=== PATIENT | male | born 1975 | race Caucasian/White ===

== ENCOUNTER 2022-12-25 15:35 | Emergency (ER) | payer OTHER, SELFPAY ==
--- NOTE | ~2022-12-25 | XR_ITS ---
EXAM: XR wrist RT min 3V DATE: 12/25/2022 16:13 HISTORY: medial rt wrist pain. . COMPARISON: None available. FINDINGS: Normal mineralization. No fracture or dislocation. No lytic or blastic lesion. Degenerativ e subchondral cysts present at the lunate/triquetral articulation. Mild ulnar positive variance No er osion or periosteal change. Soft tissues within normal limits. IMPRESSION: No acute osseous finding in the right wrist. Reviewed, dictated and finalized at location K.
--- NOTE | 2022-12-25 15:43 | ED.UPPEXIN ---
HPI - Extremity Injury (Upper) General Chief Complaint: Extremity Injury, Upper Stated Complaint: rt wrist injury Time Seen by Provider: 12/25/22 15:59 Source: patient, RN notes reviewed and old records reviewed Mode of arrival: ambulatory Limitations: no limitations History of Present Illness HPI narrative: 47-year-old male presents to the [facility] with complaints of right wrist pain with rotation. Denies any direct injury. States that he was making a sandwich at work on when he started having sharp pains in the ulnar aspect of the wrist. Has full range of motion. Treatments prior to arrival: NSAIDS (Advil) Related Data Home Medications Medication Instructions Recorded Confirmed Unable to Obtain Home Medications 12/25/22 12/25/22 Allergies Allergy/AdvReac Type Severity Reaction Status Date / Time No Known Drug Allergies Allergy Unknown Unknown Verified 12/25/22 16:15 Review of Systems Review of Systems: All systems reviewed & are unremarkable except as noted in HPI and below Constitutional: Constitutional: Reports no additional constitutional complaints Eyes: Eyes: Reports no additional eye complaints ENT: Reports system reviewed and no additional complaints, except as documented Cardiovascular: Cardiovascular: Reports no additional cardiovascular complaints, Denies chest pain and Denies dyspnea Respiratory: Respiratory: Reports no additional respiratory complaints, Denies chest congestion, Denies cough and Denies dyspnea Gastrointestinal: Gastrointestinal: Reports no additional gastrointestinal complaints, Denies abdominal pain, Denies nausea and Denies vomiting Musculoskeletal: Musculoskeletal: Reports as per HPI, Reports arthralgias (Right wrist), Denies joint swelling and Denies numbness Integumentary/Breasts: Skin/Breast: Reports system reviewed and no additional complaints, except as docu Neurologic: Reports system reviewed and no additional complaints, except as documented Psychiatric: Psychiatric: Reports no additional psychiatric complaints Allergic/Immunologic: Allergic/Immunologic: Reports no additional allergic/immunologic complaints PMFSH Comments At the time of my signature, I reviewed and agree with the nursing past medical, surgical, social, and family history. There is no relevant family history pertinent to the patient complaint. Exam Const: General: cooperative, healthy appearing, comfortable, no acute distress, well developed, alert and well nourished Nutritional Appearance: well nourished Orientation/consciousness: patient oriented x3 Limitations: no limitations HENMT: Head: normal to inspection Ears: hearing grossly normal bilaterally and external ears normal Face/Nose/Sinus: Normal external nose present, Normal nares present, Normal nasal mucous membranes and turbinates present, normal facial exam and face symmetric Face and sinus: normal facial exam and face symmetric Eyes: General: appearance normal, both eyes and all related structures Alignment and Position: alignment normal Periorbital: periorbital findings normal Pupils: Equal, round and reactive pupils present EOM: EOMs intact bilaterally Neck: Neck: normal visual inspection, full ROM, no lymphadenopathy and no meningeal signs Chest: Chest palpation & inspection: normal inspection of the chest Resp: Effort & Inspection: normal respiratory effort and able to speak in complete sentences Cardio: Rate: regular rate Rhythm: regular rhythm Back/Spine/Pelvis: Cervical Spine: cervical ROM normal Skin: General skin exam: normal color and no rashes or lesions noted Lesions: no lesions Rashes: no rashes Wounds: no wounds Neuro: General: patient oriented x3, gait normal, tone normal, moves all extremities and no meningeal signs Cranial nerves: Yes Equal, round and reactive pupils present Cognition (Neuro): normal cognition Speech: normal speech Gait exam (Neuro): Normal gait present Extrem: General: normal
[2022-12-25 15:55] VITALS: BP 145/96; PULSE 73; RESP 16; TEMP 36.2; O2SAT 97
== END 2022-12-25 16:25 | disposition home or self-care (01) ==
PROVIDERS: Emergency Provider Nurse Practitioner
DX: M25.531 Pain in right wrist (principal)
CPT/HCPCS: 73110; 99213; G0463

== ENCOUNTER 2023-05-08 09:40 | Emergency (ER) | payer OTHER, SELFPAY ==
[2023-05-08 09:44] VITALS: BP 125/102; PULSE 92; RESP 20; TEMP 36.8; O2SAT 99
[2023-05-08 09:52] VITALS: BP 125/102; PULSE 92; RESP 20; TEMP 36.8; O2SAT 99
--- NOTE | 2023-05-08 10:21 | ED.URI ---
HPI - URI/Sore Throat General Chief Complaint: Upper Respiratory Infection Stated Complaint: throat Time Seen by Provider: 05/08/23 10:10 Source: patient, RN notes reviewed and old records reviewed Mode of arrival: ambulatory Limitations: no limitations History of Present Illness HPI Narrative: 47 year old male presents to [facility] care accompanied by friend with complaints of sore throat for the past 2-3 days with cough and some episodes of diarrhea. Patient reports that he has no nausea or vomiting, states some headache discomfort and has felt feverish but hasn't monitored his temp. Patient reports that he has been taking Aleve for his symptoms. Patient denies any shortness of breath or any body aches. MD elicited complaint: cough and sore throat Onset (ago): day(s) (2-3 days) Pain scale (0-10): 8 Able to tolerate fluids by mouth: Yes Treatments prior to arrival: other (Aleve) Related Data Home Medications Medication Instructions Recorded Confirmed omeprazole 20 mg capsule,delayed 20 mg PO DAILY 05/08/23 05/08/23 release Allergies Allergy/AdvReac Type Severity Reaction Status Date / Time No Known Drug Allergies Allergy Unknown Unknown Verified 05/08/23 09:48 Review of Systems Review of Systems: CONSTITUTIONAL:states some malaise, chills, sweats, felt feverish EYES: Denies visual changes, redness, or discharge. ENT: Reports rhinorrhea, congestion, sinus pain,no otalgia and positive for sore throat. CARDIOVASCULAR: Denies chest pain, palpitations, or edema. RESPIRATORY: Reports cough.? Denies dyspnea. GASTROINTESTINAL: Denies abdominal pain, nausea, vomiting, intermittent diarrhea SKIN: Denies rash or itching. MUSCULOSKELETAL: Denies myalgia. NEUROLOGIC:Reports occasional headache. All systems reviewed & are unremarkable except as noted in HPI and below PMFSH Past Medical History Medical History (Updated 05/09/23 @ 09:07 by Danuta Robles NP) Depression GERD (gastroesophageal reflux disease) Surgical History Surgical History (Updated 05/09/23 @ 09:04 by Danuta Robles NP) H/O right knee surgery Social History Social History (Updated 05/09/23 @ 09:05 by Danuta Robles NP) Smoking status: Never smoker Alcohol intake: unknown Substance use type: does not use Gender identity (if verbalized by the patient): Male Comments At time of signature, agree with nursing past medical, surgical, social and family history. There is no relevant family history pertinent to the presenting complaint Exam Narrative: GENERAL: Well-appearing, well-nourished, and in no acute distress. HEAD: Normocephalic EYES: PERRLA, conjunctivae clear ENT: Nares clear, turbinates edematous and erythematous, clear discharge. Mucous membranes moist. TM pearly das with dull light reflex bilaterally; no tragal tenderness. Oropharynx erythematous without lesions. Tonsils not enlarged and without exudate, edentulous,no drooling, no hoarseness, no trismus, uvula midline. NECK: Supple. No lymphadenopathy CHEST: Clear to auscultation, breath sounds equal. No wheezing, rhonchi, rales, or stridor. No respiratory distress, speaks in full sentences.dry cough, SAO2 99% on room air HEART: Regular rate and rhythm. No murmur heard. SKIN: Warm, dry, no rash. NEURO: Alert and oriented x3. PSYCH: Normal mood and affect Course Course Emergency Course: Patient is aware of diagnosis, understands and agrees to treatment plan.? Anticipatory guidance given.? Patient agrees to follow-up as directed and is aware of reasons to seek care at the emergency department. Portions of this record may have been created with voice recognition software Level of Care: Express Care Visit Vital Signs Vital signs: Vital Signs Temperature 36.8 C 05/08/23 09:44 Pulse Rate 92 05/08/23 09:44 Respiratory Rate 20 05/08/23 09:44 Blood Pressure 125/102 H 05/08/23 09:44 Pulse Oximetry 99 05/08/23 0
[2023-05-08 10:34] VITALS: BP 130/96
== END 2023-05-08 10:34 | disposition home or self-care (01) ==
PROVIDERS: Emergency Provider Registered Nurse
DX: J06.9 Acute upper respiratory infection, unspecified (principal); J02.9 Acute pharyngitis, unspecified; K21.9 Gastro-esophageal reflux disease without esophagitis
CPT/HCPCS: 87081; 87880; 99213; G0463

== ENCOUNTER 2024-05-28 11:15 | Emergency (ER) | payer OTHER, SELFPAY ==
[2024-05-28 11:19] VITALS: BP 147/87; PULSE 94; RESP 16; TEMP 36.1; O2SAT 97
--- NOTE | 2024-05-28 11:56 | ED.URI ---
HPI - URI/Sore Throat General Chief Complaint: Upper Respiratory Infection Stated Complaint: Cough/Chest Pain/Hard to Breath Time Seen by Provider: 05/28/24 11:45 Source: patient, RN notes reviewed and old records reviewed Mode of arrival: ambulatory Limitations: no limitations History of Present Illness HPI Narrative: The 48-year-old male presents to [facility] Care with complaints of cough with chest hurting when he coughs and feeling like it is hard to breath starting last night. Patient reports that he has used cough medication and also used Flonase without improvement in his symptoms. Patient reports no known fevers states that he has had some chills and has felt hot.Patient reports that he has used Flonase and took some cough medication. MD elicited complaint: cough and other (some chills no fever noted) Pertinent past history: asthma (exercise induced asthma when younger) Onset (ago): day(s) (started yesterday evening) Pain scale (0-10): 5 Description of mucous: clear Able to tolerate fluids by mouth: Yes Treatments prior to arrival: other (cough medication and Flonase) Related Data Home Medications ?Medication ?Instructions ?Recorded ?Confirmed ?Last Taken ?Type omeprazole 20 mg capsule,delayed 20 mg PO DAILY 05/08/23 05/08/23 Unknown History release atorvastatin 10 mg tablet mg 05/28/24 Unknown History bupropion HCl 150 mg 24 hr tablet, mg PO 05/28/24 Unknown History extended release citalopram 20 mg tablet mg 05/28/24 Unknown History losartan 25 mg tablet mg 05/28/24 Unknown History Allergies Allergy/AdvReac Type Severity Reaction Status Date / Time No Known Drug Allergies Allergy Unknown Unknown Verified 05/28/24 11:25 Review of Systems Review of Systems: CONSTITUTIONAL: Reports malaise, chills, sweats, no known fever. EYES: Denies visual changes, redness, or discharge. ENT: Reports rhinorrhea, congestion, no sinus pain,no otalgia and no sore throat. CARDIOVASCULAR: Denies chest pain, palpitations, or edema.reports chest hurts with cough RESPIRATORY: Reports productive cough.? Denies dyspnea. GASTROINTESTINAL: Denies abdominal pain, nausea, vomiting, diarrhea SKIN: Denies rash or itching. MUSCULOSKELETAL: Denies myalgia. NEUROLOGIC: Denies headache. All systems reviewed & are unremarkable except as noted in HPI and below PMFSH Past Medical History Medical History (Updated 05/30/24 @ 10:51 by Danuta Robles NP) Hypertension Elevated cholesterol Asthma exercise induced when younger GERD (gastroesophageal reflux disease) Depression Surgical History Surgical History (Updated 05/09/23 @ 09:04 by Danuta Robles NP) H/O right knee surgery Social History Social History (Updated 05/09/23 @ 09:05 by Danuta Robles NP) Smoking status: Never smoker Alcohol intake: unknown Substance use type: does not use Gender identity (if verbalized by the patient): Male Comments At time of signature, agree with nursing past medical, surgical, social and family history. There is no relevant family history pertinent to the presenting complaint Exam Narrative: GENERAL: Well-appearing, well-nourished, and in no acute distress. HEAD: Normocephalic EYES: PERRLA, conjunctivae clear ENT: Nares clear, turbinates edematous and erythematous, clear discharge. Mucous membranes moist. TM pearly das with dull light reflex bilaterally; no tragal tenderness. Oropharynx erythematous without lesions. Tonsils not enlarged and without exudate, no drooling, no hoarseness, no trismus, uvula midline.post nasal drainage NECK: Supple. No lymphadenopathy CHEST: Clear to auscultation, breath sounds equal. No wheezing, rhonchi, rales, or stridor. No respiratory distress, speaks in full sentences.loose cough, SAO2 97% no tachypnea noted no retractions even and nonlabored HEART: Regular rate and rhythm. No murmur heard. SKIN: Warm, dry, no rash. NEURO: Alert and oriented x3. PSYCH: Normal mood and affect Course Course Emergency Course: Patient is aware of diagnosis, understands and agrees to treatment plan.? Anticipatory guidance given.? Patient agrees to follow-up as directed and is aware of reasons to seek care at the emergency department. Portions of this record may have been created with voice recognition software Level of Care: Express Care Visit Vital Signs Vital signs: Vital Signs Temperature 36.1 C L 05/28/24 11:19 Pulse Rate 94 05/28/24 11:19 Respiratory Rate 16 05/28/24 11:19 Blood Pressure 147/87 H 05/28/24 11:19 Pulse Oximetry 97 05/28/24 11:19 Oxygen Delivery Room Air 05/28/24 11:19 Temperature 36.1 C L 05/28/24 11:19 Pulse Rate 94 05/28/24 11:19 Respiratory Rate 16 05/28/24 11:19 Blood Pressure 147/87 H 05/28/24 11:19 Pulse Oximetry 97 05/28/24 11:19 Oxygen Delivery Room Air 05/28/24 11:19 Reviewed MDM - URI/Sore Throat MDM Narrative Medical decision making narrative: Differential diagnosis considered: Pete virus, strep pharyngitis, allergic rhinitis, upper respiratory tract infection, sinusitis, rhinosinusitis, nasopharyngitis. viral pharyngitis, otitis media, otitis externa, pneumonia, bronchitis, viral cough syndrome, viral syndrome, and influenza.? Exam findings show no acute concerns or changes; patient is non-toxic appearing and is in no distress.? Patient is appropriate for outpatient treatment and follow-up. Differential Diagnosis Differential diagnosis: Likely upper respiratory infection, sinusitis, viral infection, bronchitis, influenza and other (COVID, acute cough) Medical Records Attestation: I reviewed the patient's medical records. Lab Data Attestation: I reviewed the patient's lab results. Lab results narrative: Influenza A negative, Influenza B negative, COVID antigen negative Labs: Lab Results 05/28/24 Range/Units 11:59 POC Influenza A Ag Negative (Negative) POC Influenza B Ag Negative (Negative) POC SARS CoV-2 Ag Negative (Negative) reviewed Critical Care Time Critical Care Time Critical Care Time: No Discharge Plan Discharge Clinical Impression: Acute cough Upper respiratory infection Qualifiers: URI type: unspecified URI Qualified Code(s): J06.9 - Acute upper respiratory infection, unspecified Patient Disposition: Home, Self-Care Condition: Stable Instructions: Antibiotic Form, Upper Respiratory Infection (ED), Acute Cough (ED) Additional Instructions: Increase fluids especially juices and water Mfof-zxc-wyxohdy cough and cold medicine of your choice for your symptoms Zyrtec Claritin or Olivia daily include Coricidin brand decongestant Continue your inhaler/nebulizer as directed Steroids as directed--take with food heat to the face 20-30 minutes 4-6 times a day for pain Salt water gargles, throat lozenges or throat sprays as desired If your symptoms persist, change or worsen significantly before you can contact your personal physician then please, without delay, go to the emergency department for further evaluation. Follow-up with PCP in 7-10 days or sooner if needed Follow up with PCP soon in regards to your blood pressure which is elevated above threshold for referral. Blood pressure above 120/80 may indicate pre-hypertension. Patient Language: Polish Prescriptions: New prednisone 20 mg tablet 20 mg PO BID Qty: 10 0RF albuterol sulfate [Ventolin HFA] 90 mcg/actuation HFA aerosol inhaler 2 puff inhalation QID PRN (Reason: shortness of breath or wheezing) Qty: 6.7 0RF Rx Instructions: Whatever is covered with his insurance No Action omeprazole 20 mg capsule,delayed release(DR/EC) 20 mg PO DAILY atorvastatin 10 mg tablet citalopram 20 mg tablet losartan 25 mg tablet bupropion HCl 150 mg tablet extended release 24 hr PO Follow-up/Referrals: UNKNOWN,DOCTOR [Primary Care Provider] - Time of Disposition: 12:14 Quality April Coma Scale Eyes: Open Verbal: Oriented and Alert Motor: Follows Commands [place] Coma Total Score: 15
--- OUTSIDE RECORDS SUMMARY | 2024-05-28 12:02 | XMS_ITS | Referral Summary ---
Author Organization [facility] Address [address] [place] [address] Care Team Providers Care Financial Sales Professional Name Role Phone Atul De Jesus MD Primary Care Provider + Source Comments [facility],non-owned Affiliates and Associated Physician Practices is amultiple site organization consisting of ambulatory clinics and hospital sitesin [place], [place], [place] and [place]. This disclosure is being madepursuant to the Care Everywhere program and may not contain all informatio navailable regarding this patient. Last updated 18.[facility] Allergies No known active allergies Medications * Be aware that medications may not be up to date on this document. Alwaysverify current medications with the patient. Medication Sig Dispensed Refills Start Date End Date Status aspirin (ASPIRIN) 81 MG chew tablet Take 81 mg by mouth once daily Active atorvastatin (LIPITOR) 40 MG tablet Take 40 mg by mouth at bedtime Active venlafaxine XR 24hr (EFFEXOR XR) 37.5 MG capsule Take 37.5 mg by mouth daily with breakfast Active fish oil/omega-3 fatty acids (PROMEGA;CARDI-OMEGA 3) 1000 MG capsule Take 1,000 mg by mouth daily with food Active Cholecalciferol (VITAMIN D3) 400 UNITS tablet Take 5,000 Units by mouth once daily Active buPROPion XL 24hr (WELLBUTRIN-XL) 300 MG tablet TK 1 T PO QD 01/21/2016 Active cyclobenzaprine (FLEXERIL) 10 MG tablet TAKE ONE T PO THREE TIMES D PRN AND USE SPARINGLY AFTER PHYSICAL THERAPY 11/05/2015 Active Active Problems Problem Noted Date Diagnosed Date Cervical radiculopathy at C5 10/05/2017 Tendinopathy of right rotator cuff 10/05/2017 Resolved Problems Problem Noted Date Diagnosed Date Resolved Date Ischemic stroke 08/03/2017 10/05/2017 Social History Tobacco Use Types Packs/Day Years Used Date Smoking Tobacco: Never Smokeless Tobacco: Never Tobacco Cessation:Counseling Given: Yes Alcohol Use Standard Drinks/Week Comments No 0 (1 standard drink = 0.6 oz pur e alcohol) Sex and Gender Information Value Date Recorded Sex Assigned at Not on file Gender Identity Not on file Sexual Orientation Not on file Last Filed Vital Signs Vital Sign Reading Time Taken Comments Blood Pressure 132/81 10/05/2017 10:36 AM CDT Pulse 87 09/04/2017 11:33 AM CDT Temperature 36.7 C (98 F) 09/04/2017 11:33 AM CDT Respiratory Rate 18 08/04/2017 11:55 AM CDT Oxygen Saturation 95% 08/04/2017 11:55 AM CDT Inhaled Oxygen Concentration - - Weight 90.7 kg (200 lb) 10/23/2017 10:18 AM CDT Height 170.2 cm (5' 7 ) 10/23/2017 10:18 AM CDT Body Mass Index 31.32 10/23/2017 10:18 AM CDT Functional Status Functional Status Response Date of Assess ment Is person deaf or have serious hearing difficult y? No 08/04/2017 Is person blind or have serious difficulty seein g? No 08/04/2017 Does person have serious dif ficulty walking/climbing stairs? No 08/04/2017 Does person have difficulty dressing/bathing? No 08/04/2017 Does person have difficulty doing errands alone? No 08/04/2017 Cognitive Status Response Date of Assessm ent Does person have difficulty concentrating/remembering/making decisions? No 08/04/2017 Plan of Treatment Not on file Advance Directives * Full Code (Latest Code Status on File) Date Activated Date Inactivated Comments 08/04/2017 3:25 AM 08/04/2017 4:56 PM Care Teams Financial Sales Professional Relationship Specialty Start Date End Date tAul De Jesus MD PCP - General 08/06/17
--- OUTSIDE RECORDS SUMMARY | 2024-05-28 12:02 | XMS_ITS | Patient Health Summary ---
Author Organization [facility] Fleck Address [address] [place] [address] Care Team Providers Care Research Project Coordinator Name Role Phone Atul De Jesus MD Primary Care Provider + Note from [facility],non-owned Affiliates and Associated Physician Practices is amultiple site organization consisting of ambulatory clinics and hospital sitesin [place], [place], [place] and [place]. This disclosure is being madepursuant to the Care Everywhere program and may not contain all information available regarding this patient. Last updated 18.[facility] Allergies No known active allergies Medications * Be aware that medications may not be up to date on this document. Alwaysverify current medications with the patient. * aspirin (ASPIRIN) 81 MG chew tablet Take 81 mg by mouth once daily * atorvastatin (LIPITOR) 40 MG tablet Take 40 mg by mouth at bedtime * venlafaxine XR 24hr (EFFEXOR XR) 37.5 MG capsule Take 37.5 mg by mouth daily with breakfast * fish oil/omega-3 fatty acids (PROMEGA;CARDI-OMEGA 3) 1000 MG capsule Take 1,000 mg by mouth daily with food * Cholecalciferol (VITAMIN D3) 400 UNITS tablet Take 5,000 Units by mouth once daily * buPROPion XL 24hr (WELLBUTRIN-XL) 300 MG tablet(Started 01/21/2016) TK 1 T PO QD * cyclobenzaprine (FLEXERIL) 10 MG tablet(Started 11/05/2015) TAKE ONE T PO THREE TIMES D PRN AND USE SPARINGLY AFTER PHYSICAL THERAPY Active Problems Problem Noted Date Diagnosed Date [...] Mass Index 31.32 10/23/2017 10:18 AM CDT Procedures * SARS-COV-2 (COVID-19) IN HOUSE(Performed 01/20/2020) Performed for Exposure to SARS-associated coronavirus * SARS-COV-2 (COVID-19) PANEL (SOIL)(Performed 01/20/2020) Performed for Exposure to SARS-associated coronavirus * MRI CERVICAL SPINE WO CONTRAST(Performed 10/12/2017) Performed for Osteoarthritis of spine with radiculopathy, cervical region * FL DRAIN/INJECT LARGE JOINT/BURSA(Performed 10/05/2017) Performed for Tendinopathy of right rotator cuff * XR CERVICAL SPINE 2 OR 3VW(Performed 10/05/2017) Performed for Neck pain * XR SHOULDER RIGHT 2VW OR MORE(Performed 10/05/2017) Performed for Right shoulder pain, unspecified chronicity * MRI SHOULDER RIGHT WO CONTRAST(Performed 09/15/2017) Performed for Chronic right shoulder pain * URINE DRUG SCREEN IMMUNOASSAY(Performed 08/04/2017) * MRI BRAIN WO CONTRAST(Performed 01/09/2017) Results * SARS-COV-2 (COVID-19) IN HOUSE (01/20/2020 2:34 PM CDT) COVID-19 PCR Not detected Not detected 01/21/2020 10:36 PM CDT [facility] MICROBIOLOGY Microbiology SPECIMEN FROM NASOPHARYNGEAL STRUCTURE / Unknown Collection / Unknown 01/20/2020 2:34 PM CDT 01/20/2020 2:34 PM CDT Narrative [facility] MICROBIOLOG[facility] - 01/21/2020 10:36 PM CDT This Real Time RT-PCR assay was developed and its performance characteristics determined by [facility]. This test has been authorized by the Food and Drug administration (FDA)under an Emergency Use Authorization (EUA). This test has been validated in accordance with the FDA's guidance document Policy for Diagnostic Testing in Laboratories Certified to perform High Complexity Testing under CLIA prior to Emergency Use Authorization for Coronavirus Disease-2019 during the Public Health Emergency issued on June 14, 2019. FDA independent review of this validation is pending. This test is only authorized for the duration of time the declaration that circumstances exist justifying the authorization of emergency use of in vitro diagnostic tests for detection of SARS-CoV-2 virus and/or diagnosis of COVID-19 infection under section 564(b)(1) of the Act, 21 U.S.C 360bbb-3 (b)(1), unless the authorization is terminated or revoked sooner. Fact Sheets for this EUA assay are available upon request. Kristen Musa SUPERVISOR OF INSTRUCTION-ENVIRONMENTAL EDUCATION SPECIALIST LAB - MICR OBIOLOGY ORDERABLES [facility]CROBIOLOG[facility] [address] [place] [address], [facility] [phone] * MRI CERVICAL SPINE WO CONTRAST (10/12/2017 11:50 AM CDT) Anatomical Region Laterality Modality Pelvis Magnetic Resonan ce 10/12/2017 11:2 6 AM CDT Impressions 10/12/2017 11:30 AM CDT IMPRESSION: 1. C3-4 right disc osteophyte complex causing right neural foraminal stenosis. This report was electronically signed by JEANMARIE BERRIOS on 10/12/2017 11:30 AM . Narrative 10/12/2017 11:30 AM CDT EXAMINATION: Magnetic resonance imaging (MRI) of the cervical spine without contrast HISTORY: neck pain with numbness right arm TECHNIQUE: MRI of the cervical spine was performed without contrast according to standard protocol. FINDINGS: No prior study is available for comparison at the time of this dictation. The alignment is normal. Vertebral bodies are normal in height without evidence of compression fractures. Marrow signal intensity is normal. The craniocervical junction and visualized portions of the posterior fossa appear normal. The spinal cord appears normal. The intervertebral discs are normal in height. No soft tissue abnormality is identified. Normal flow voids are identified in the vertebral arteries. C2-3: There is no disc bulge. There is no central canal stenosis. There is no facet osteoarthritis. There is right uncovertebral joint osteoarthritis. There is right neural foraminal stenosis. C3-4: There is a disc osteophyte complex. There is no central canal stenosis. There is no facet osteoarthritis. There is no uncovertebral joint osteoarthritis. There is no neural foraminal stenosis. C4-5: There is no disc bulge. There is no central canal stenosis. There is no facet osteoarthritis. There is no uncovertebral joint osteoarthritis. There is no neural foraminal stenosis. C5-6: There is no disc bulge. There is no central canal stenosis. There is no facet osteoarthritis. There is no uncovertebral joint osteoarthritis. There is no neural foraminal stenosis. C6-7: There is no disc bulge. There is no central canal stenosis. There is no facet osteoarthritis. There is no uncovertebral joint osteoarthritis. There is no neural foraminal stenosis. C7-T1: There is no disc bulge. There is no central canal stenosis. There is no facet osteoarthritis. There is no uncovertebral joint osteoarthritis. There is no neural foraminal stenosis. Procedure Note Jeanmarie Berrios MD - 10/12/2017 EXAMINATION: Magnetic resonance imaging (MRI) of the cervical spine without contrast HISTORY: neck pain with numbness right arm TECHNIQUE: MRI of the cervical spine was performed without contrast according to standard protocol. FINDINGS: No prior study is available for comparison at the time of this dictation. The alignment is normal. Vertebral bodies are normal in height without evidence of compression fractures. Marrow signal intensity is normal.The craniocervical junction and visualized portions of the posterior fossa appear normal. The spinal cord appears normal. The intervertebral discs are normal in height. No soft tissue abnormality is identified. Normal flow voids are identified in the vertebral arteries. C2-3: There is no disc bulge. There is no central canal stenosis. Thereis no facet osteoarthritis. There is right uncovertebral joint osteoarthritis. There is right neural foraminal stenosis. C3-4: There is a disc osteophyte complex. There is no central canal stenosis. There is no facet osteoarthritis. There is no uncovertebral joint osteoarthritis. There is no neural foraminal stenosis. C4-5: There is no disc bulge. There is no central canal stenosis. Thereis no facet osteoarthritis. There is no uncovertebral joint osteoarthritis. There is no neural foraminal stenosis. C5-6: There is no disc bulge. There is no central canal stenosis. Thereis no facet osteoarthritis. There is no uncovertebral joint osteoarthritis. There is no neural foraminal stenosis. C6-7: There is no disc bulge. There is no central canal stenosis. Thereis no facet osteoarthritis. There is no uncovertebral joint osteoarthritis. There is no neural foraminal stenosis. C7-T1: There is no disc bulge. There is no central canal stenosis. There is no facet osteoarthritis. There is no uncovertebral joint osteoarthritis. There is no neural foraminal stenosis. IMPRESSION: 1. C3-4 right disc osteophyte complex causing right neural foraminal stenosis. This report was electronically signed by JEANMARIE BERRIOS on 10/12/201711:30 AM . Hina Paulino PA-C MR ORDERABLES * FL DRAIN/INJECT LARGE JOINT/BURSA (10/05/2017 11:42 AM CDT) Narrative Paris Martinez PA-C - 10/05/2017 11:42 AM CDT Paris Martinez PA-C 10/05/2017 11:42 AM Injection shoulder The patient was offered a cortisone injection into the right shoulder. After discussing the risks and benefits of the procedure, the patient elected to proceed. After sterile preparation, the right shoulder was injected, into the subacromial , with a combination of 2 mL of Kenalog and 4 mL of lidocaine. The patient tolerated the procedure well without complication. The patient was instructed to ice the shoulder today, and to take anti-inflammatories as needed. They were also instructed to refrain from heavy activity for the next 48 hours. Paris Martinez PA-C PROCEDURE/MINOR SURG ICAL ORDERABLES * XR CERVICAL SPINE 2 OR 3VW (10/05/2017 11:39 AM CDT) Anatomical Region Laterality Modality Spine Radiographic Raina ging 10/05/2017 11:3 7 AM CDT Impressions 10/05/2017 11:48 AM CDT IMPRESSION: No acute fracture or subluxation identified. No radiographic evidence of degenerative disc disease. Dictated by Dolly Kilgore MD (resident care associate). Dr. ARTEMIO Bustillo MD have personally reviewed and interpreted this examination/study. This report was electronically signed by ARTEMIO HENRY MD on 10/05/2017 11:48 AM . Narrative 10/05/2017 11:48 AM CDT EXAMINATION: XR CERVICAL SPINE 2 OR 3VW HISTORY: NECK PAIN COMPARISON: Cervical spine MRI dated on 10/08/2015. FINDINGS: The inferior endplate of C7 is obscured by the shoulders on lateral projection. The vertebral bodies are normally aligned. No acute fracture or compression deformity is identified. The intervertebral disc spaces are maintained. The predental interval and prevertebral soft tissues are normal. Bone density and texture are normal. Procedure Note Artemio Henry MD - 10/05/2017 EXAMINATION: XR CERVICAL SPINE 2 OR 3VW HISTORY: NECK PAIN COMPARISON: Cervical spine MRI dated on 10/08/2015. FINDINGS: The inferior endplate of C7 is obscured by the shoulders on lateral projection. The vertebral bodies are normally aligned. No acute fracture or compression deformity is identified. The intervertebral disc spacesare maintained. The predental interval and prevertebral soft tissues are normal. Bone density and texture are normal. IMPRESSION: No acute fracture or subluxation identified. No radiographic evidence of degenerative disc disease. Dictated by Dolly Kilgore MD (resident care associate). Dr. ARTEMIO Bustillo MD have personally reviewed and interpreted this examination/study. This report was electronically signed by ARTEMIO HENRY MD on10/05/2017 11:48 AM . Hina BROWNC DIAGNOSTIC IMAG ING ORDERABLES * XR SHOULDER RIGHT 2VW OR MORE (10/05/2017 10:28 AM CDT) Anatomical Region Laterality Modality Upper Extremity Radiographic Raina ging 10/05/2017 10:4 0 AM CDT Impressions 10/05/2017 10:46 AM CDT IMPRESSION: No acute osseous abnormality. Dictated by Dolly Kilgore MD (resident care associate). Dr. ARTEMIO Bustillo MD have personally reviewed and interpreted this examination/study. This report was electronically signed by ARTEMIO HENRY MD on 10/05/2017 10:46 AM . Narrative 10/05/2017 10:46 AM CDT EXAMINATION: XR SHOULDER RIGHT 2VW HISTORY: right shoulder pain COMPARISON: Right shoulder MRI dated on 09/15/2017. FINDINGS: The osseous structures are intact without acute fracture. The glenohumeral and acromioclavicular joints are in anatomic alignment. The glenohumeral joint space is normal. There is mild articular surface sclerosis of the glenoid and a small posterior osteophyte. Bone density and texture are normal. Procedure Note Artemio Henry MD - 10/05/2017 EXAMINATION: XR SHOULDER RIGHT 2VW HISTORY: right shoulder pain COMPARISON: Right shoulder MRI dated on 09/15/2017. FINDINGS: The osseous structures are intact without acute fracture. Theglenohumeral and acromioclavicular joints are in anatomic alignment. The glenohumeral joint space is normal. There is mild articular surface sclerosis of the glenoid and a small posterior osteophyte. Bone density and texture are normal. IMPRESSION: No acute osseous abnormality. Dictated by Dolly Kilgore MD (resident care associate). Dr. ARTEMIO Bustillo MD have personally reviewed and interpreted this examination/study. This report was electronically signed by ARTEMIO HENRY MD on10/05/2017 10:46 AM . Paris Martinez PA-C DIAGNOSTIC IMAGING O RDERABLES * MRI SHOULDER RIGHT WO CONTRAST (09/15/2017 1:24 PM CDT) Anatomical Region Laterality Modality Magnetic Resonan ce 09/17/2017 8:46 AM CDT Impressions 09/17/2017 2:11 PM CDT IMPRESSION: 1. Supraspinatus and infraspinatus tendinosis with a small intrasubstance tear within the supraspinatus tendon. 2. Very small amount of fluid within the subacromial-subdeltoid bursa, which can be within normal limits or reflect bursitis. Dictated by Dolly Kilgore MD (resident care associate). I, Dr. ARTEMIO HENRY MD have personally reviewed and interpreted this examination/study. This report was electronically signed by ARTEMIO HENRY MD on 09/17/2017 2:11 PM . Narrative 09/17/2017 2:11 PM CDT EXAMINATION: Magnetic resonance imaging (MRI) of the right shoulder without contrast HISTORY: Chronic right shoulder pain TECHNIQUE: MRI of the right shoulder was performed using multiple pulse sequences in multiple planes without contrast. COMPARISON: Comparison is made with a study from right shoulder radiograph dated on 08/16/2015. FINDINGS: The acromioclavicular joint is intact. There is no appreciable acromioclavicular joint osteoarthritis. Glenohumeral alignment is normal. There is no effusion. The glenoid labrum is normal, within the limits of this non-arthrographic examination. The glenohumeral articular cartilage is intact. Increased signal is seen within the supraspinatus tendon and infraspinatus tendon on the T2-weighted images consistent with tendinosis. There is a small area of linear hyperintense signal in the supraspinatus tendon in this region consistent with a developing intrasubstance tear, without a gap, retraction, or associated muscle atrophy (series 7 image 13-14). No tear is seen in the infraspinatus, subscapularis, or teres minor tendons, and the muscles are normal in bulk and signal. The long head of the biceps anchor is intact, and the tendon is normal without tendinosis or tear. There is a very small amount of fluid in the subacromial-subdeltoid bursa, which can be a normal finding or reflect bursitis. Marrow signal intensity is normal. Muscle bulk is normal. The subcutaneous tissue is normal. Procedure Note Artemio Henry MD - 09/17/2017 EXAMINATION: Magnetic resonance imaging (MRI) of the right shoulder without contrast HISTORY: Chronic right shoulder pain TECHNIQUE: MRI of the right shoulder was performed using multiple pulse sequences in multiple planes without contrast. COMPARISON: Comparison is made with a study from right shoulderradiograph dated on 08/16/2015. FINDINGS: The acromioclavicular joint is intact. There is no appreciable acromioclavicular joint osteoarthritis. Glenohumeral alignment is normal. There is no effusion. The glenoidlabrum is normal, within the limits of this non-arthrographic examination. The glenohumeral articular cartilage is intact. Increased signal is seen within the supraspinatus tendon andinfraspinatus tendon on the T2-weighted images consistent with tendinosis. There is a small area of linear hyperintense signal in the supraspinatus tendon in this region consistent with a developing intrasubstance tear, without a gap, retraction, or associated muscle atrophy (series 7 image 13-14). No tear is seen in the infraspinatus, subscapularis, or teres minortendons, and the muscles are normal in bulk and signal. The long head of the biceps anchor is intact, and the tendon is normal without tendinosis or tear. There is a very small amount of fluid in the subacromial-subdeltoidbursa, which can be a normal finding or reflect bursitis. Marrow signal intensity is normal. Muscle bulk is normal. Thesubcutaneous tissue is normal. IMPRESSION: 1. Supraspinatus and infraspinatus tendinosis with a smallintrasubstance tear within the supraspinatus tendon. 2. Very small amount of fluid within the subacromial-subdeltoid bursa, which can be within normal limits or reflect bursitis. Dictated by Dolly Kilgore MD (resident care associate). I, Dr. ARTEMIO HENRY MD have personally reviewed and interpreted this examination/study. This report was electronically signed by ARTEMIO HENRY MD on09/17/2017 2:11 PM . Jair Benjamin MD MR ORDERABLES * DRUG SCREEN TOX URINE PANEL (08/04/2017 9:52 AM CDT) [facility] Amphetamines Screen Urine Negative Negative: < 1000 ng/mL 08/04/2017 10:24 AM [facility] Barbiturates Screen Urine Negative Negative: < 200 ng/mL 08/04/2017 10:24 AM [facility] Benzodiazepine Screen Urine Negative Negative: < 200 ng/mL 08/04/2017 10:24 AM [facility] Opiates Urine Negative Negative: < 300 ng/mL 08/04/2017 10:24 AM [facility] Cocaine Metabolites Urine Negative Negative: < 300 ng/mL 08/04/2017 10:24 AM CDT [facility] Phencyclidine Screen Urine Negative Negative: < 25 ng/ml 08/04/2017 10:24 AM [facility] Cannabinoids Screen Urine Negative Negative: <50 ng/mL 08/04/2017 10:24 AM [facility] Methadone Screen Urine Negative Negative: < 300 ng/mL 08/04/2017 10:24 AM [facility] Urine URINE / Unknown Collection / Unknown 08/04/2017 9:52 AM CDT 08/04/2017 9:58 AM T [facility] - 08/04/2017 10:24 AM CDT The Urine Toxicology Screening Panel does not screen for Propoxyphene, Meprobamate, Carisoprodol, Trazodone, [id number] medications and/or volatiles (Acetone, Isopropanol, Methanol or Ethylene Glycol). Ethanol, Salicylate, Acetaminophen, Tricyclic Antidepressants and several therapeutic drugs may be individually assayed in serum or plasma specimen. Toxicology testing by the [facility] is an aid to medical diagnosis and treatment of patients. No documented chain of custody was maintained. Results are intended to be used for clinical purposes only. Donte Murguia MD LAB - URINE CHEMISTR Y ORDERABLES [address] [phone] * MRI BRAIN WO CONTRAST (01/09/2017 6:50 PM CDT) Anatomical Region Laterality Modality Head Other Impressions 01/10/2017 2:03 PM CDT IMPRESSION: 1. No findings to explain the patient's symptoms. This report was approved by Peter Rider on 01/10/2017 1:31 PM . I, Dr. WARREN ERVIN M.D. have personally reviewed and interpreted this examination/study. This report was electronically signed by WARREN ERVIN M.D. on 01/10/2017 2:03 PM . Narrative 01/10/2017 2:03 PM CDT This is a summary report. The complete report is available in the patient's medical record. If you cannot access the medical record, please contact the sending organization for a detailed fax or copy. EXAMINATION: Magnetic resonance imaging (MRI) of the brain without contrast HISTORY: Intermittent numbness and weakness of the right upper extremity TECHNIQUE: MRI of the brain was performed without contrast according to standard protocol. FINDINGS: No prior study is available for comparison at the time of this dictation. No evidence of acute or chronic hemorrhage is identified. No evidence of acute cerebral infarction is seen. The ventricles are of normal size, shape, and morphology. No mass effect or midline shift is seen. Periventricular white matter FLAIR hyperintensities likely represent sequelae of chronic small vessel ischemic disease. The corpus callosum and sella appear normal. The posterior fossa, brainstem, and craniocervical junction appear normal. Other than a right maxillary sinus mucus retention cyst, the visualized portions of the orbits, paranasal sinuses, and mastoids appear normal. Normal flow voids are demonstrated in the carotid arteries and basilar artery. The calvarium and visualized cervical spine appear normal. Procedure Note Warren Ervin MD - 07/13/2017 This is a summary report. The complete report is available in thepatient's medical record. If you cannot access the medical record, pleasecontact the sending organization for a detailed fax or copy. EXAMINATION: Magnetic resonance imaging (MRI) of the brain withoutcontrast HISTORY: Intermittent numbness and weakness of the right upper extremity TECHNIQUE: MRI of the brain was performed without contrast according tostandard protocol. FINDINGS: No prior study is available for comparison at the time of thisdictation. No evidence of acute or chronic hemorrhage is identified. No evidence ofacute cerebral infarction is seen. The ventricles are of normal size,shape, and morphology. No mass effect or midline shift is seen.Periventricular white matter FLAIR hyperintensities likely represent sequelae of chronic small vesselischemic disease. The corpus callosum and sella appear normal. Theposterior fossa, brainstem, and craniocervical junction appear normal. Other than a right maxillary sinus mucus retention cyst, the visualizedportions of the orbits, paranasal sinuses, and mastoids appear normal.Normal flow voids are demonstrated in the carotid arteries and basilarartery. The calvarium and visualized cervical spine appear normal. IMPRESSION IMPRESSION: 1. No findings to explain the patient's symptoms. This report was approved by Peter Rider on 01/10/2017 1:31 PM . I, Dr. WARREN ERVIN M.D. have personally reviewed and interpreted thisexamination/study. This report was electronically signed by WARREN ERVIN M.D. on 01/10/20172:03 PM . Jair Benjamin MD MR ORDERABLES Care Teams Research Project Coordinator Relationship Specialty Start Date End Date Atul De Jesus MD PCP - General 08/06/17
--- OUTSIDE RECORDS SUMMARY | 2024-05-28 12:02 | XMS_ITS | Clinical Summary ---
Author Organization [facility] [address] Address [address] [place] [address] Care Team Providers Care Reception Clerk Name Role Phone Regina Flores NP Primary Care Provider [phone] Allergies No known active allergies Medications aspirin 81 mg chewable tablet Take 1 tablet (81 mg total) by mouth daily Active atorvastatin (LIPITOR) 40 mg tablet Take 1 tablet (40 mg total) by mouth nightly Active buPROPion XL (WELLBUTRIN XL) 300 mg 24 hr tablet Take by mouth daily 6 Active cholecalciferol 400 unit capsule Take 5,000 Units by mouth daily Active citalopram (CeleXA) 20 mg tablet Take 1 tablet (20 mg total) by mouth daily 3 Active cyclobenzaprine (FLEXERIL) 10 mg tablet TAKE ONE T PO THREE TIMES D PRN AND USE SPARINGLY AFTER PHYSICAL THERAPY [address] (VOLTAREN) 75 mg EC tablet Take 1 tablet (75 mg total) by mouth 2 (two) times a day 3 Active dicyclomine (BENTYL) 10 mg capsule TAKE 1 CAP BY MOUTH BEFORE MEALS AND AT BEDTIME 3 Active famotidine (PEPCID) 20 mg tablet Take 1 tablet (20 mg total) by mouth 2 (two) times a day 3 Active folic acid (FOLVITE) 1 mg tablet Take 1 tablet (1 mg total) by mouth daily 3 Active omeprazole (PriLOSEC) 20 mg capsule Take 1 capsule (20 mg total) by mouth daily 3 Active simvastatin (ZOCOR) 20 mg tablet Take 1 tablet (20 mg total) by mouth daily 3 Active venlafaxine XR (EFFEXOR-XR) 37.5 mg 24 hr capsule Take 1 capsule (37.5 mg total) by mouth daily Active Active Problems Problem Noted Date Diagnosed Date Right wrist tendonitis 02/05/2023 Right wrist pain 02/05/2023 Foraminal stenosis of cervical region 07/17/2022 Other cervical disc degenera tion, unspecified cervical region 07/17/2022 Essential hypertension 05/25/2022 Thiamine deficiency 05/25/2022 Folate deficiency 05/25/2022 Moderate major depression (CMS/HCC) 05/22/2022 Tendinopathy of right rotator cuff 10/05/2017 Obesity (BMI 30-39.9) 11/05/2015 Cervical radiculopathy 09/29/2015 Acute pain of right shoulder 08/18/2015 Lipoma 07/28/2015 Moderate anxiety 07/23/2015 Mixed hyperlipidemia 04/27/2015 Social History Tobacco Use Types Packs/Day Years Used Date Smoking Tobacco: Never Smokeless Tobacco: Never Tobacco Cessation:Counseling Given: Not Answered Personal Safety Answer Date Recorded Getting School Help Needed Not on file 03/29 Sex and Gender Information Value Date Recorded Sex Assigned at Not on file 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 CHOICE PLUS Care Teams Reception Clerk Relationship Specialty [place] [id number] [address] PCP - General Nurse Practitioner 01/18/23
--- OUTSIDE RECORDS SUMMARY | 2024-05-28 12:02 | XMS_ITS | Encounter Summary ---
Author Organization [facility] Address [address] [place] [address] Care Team Providers Care Emr Analyst Name Role Phone Atul De Jesus MD Primary Care Provider + Reason for Visit * Reason Onset Date Comments Results 01/22/2020 Encounter Details Date Type Department Care Team ([facility] st Contact Info) Description 01/22/2020 Telephone [facility] [address] [place] [id number] Marline Jefferson Results Social History Tobacco Use Types Packs/Day Years Used Date Smoking Tobacco: Never Smokeless Tobacco: Never Alcohol Use Standard Drinks/Week Comments No 0 (1 standard drink = 0.6 oz pur e alcohol) Sex and Gender Information Value Date Recorded Sex Assigned at Not on file Gender Identity Not on file Sexual Orientation Not on file documented as of this encounter Functional Status Functional Status Response Date of [...] person have difficulty concentrating/remembering/making decisions? No 08/04/2017 documented as of this encounter Miscellaneous Notes * Telephone Encounter - Marline Jefferson - 01/22/2020 3:22 PM CDT Pt was notified of neg covid result and voiced understanding 01-22-20 documented in this encounter Plan of Treatment Not on file documented as of this encounter Visit Diagnoses Not on filedocumented in this encounter Care Teams Emr Analyst Relationship Specialty Start Date End Date Atul De Jesus MD PCP - General 08/06/17 documented as of this encounter
--- OUTSIDE RECORDS SUMMARY | 2024-05-28 12:02 | XMS_ITS | Clinical Summary ---
Author Organization [facility] Address [address] [place] [address] Care Team Providers Care Vice President Payer Name Role Phone Atul De Jesus MD Primary Care Provider + Source Comments [facility],non-owned Affiliates and Associated Physician Practices is amultiple site organization consisting of ambulatory clinics and hospital sitesin [place], [place], [place] and [place]. This disclosure is being madepursuant to the Care Everywhere program and may not contain all information available regarding this patient. Last updated 18.[facility] Allergies No known active allergies Medications * [...] Mass Index 31.32 10/23/2017 10:18 AM CDT Plan of Treatment Health Maintenance Due Date Last Done Comments COLOGUARD (AGES 45-75) - COL ON CA SCREENING 1976 COLON MONITORING 1976 COLONOSCOPY - COLON CA SCREENING 1976 CT COLONOGRAPHY - COLON CA SCREENING 1976 Colorectal Cancer Screening 1976 FIT - COLON CA SCREENING 1976 FLEX SIG - COLON CA SCREENING 1976 HIV SCREENING 08/13/1991 HEPATITIS C SCREENING 08/08/1994 DTAP/TDAP/TD VACCINES (1 - Tdap) 08/13/1995 HEPATITIS B VACCINE (1 of 3 - 19+ 3-dose series) 08/13/1995 SCREENING FOR DIABETES 09/04/2017 COVID-19 VACCINE ( - 2023-2 5 season) 2023 INFLUENZA VACCINE (#1) 2023 DEPRESSION SCREENING 04/16/2024 ZOSTER VACCINE (1 of 2) 2026 HIB VACCINE Aged Out No longer eligi ble based on patient's age to complete this topic HPV VACCINE Aged Out No longer eligi ble based on patient's age to complete this topic MENINGOCOCCAL (Group B) VACCINE Aged Out No longer eligible based on patient's age to complete this topic MENINGOCOCCAL VACCINE Aged Out No conrad jose maria eligible based on patient's age to complete this topic PNEUMOCOCCAL VACCINE Aged Out No long er eligible based on patient's age to complete this topic Advance Directives * Full Code (Latest Code Status on File) Date Activated Date Inactivated Comments 08/04/2017 3:25 AM 08/04/2017 4:56 PM Care Teams Vice President Payer Relationship Specialty Start Date End Date Atul De Jesus MD PCP - General 08/06/17
--- OUTSIDE RECORDS SUMMARY | 2024-05-28 12:02 | XMS_ITS | Referral Summary ---
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
[2024-05-28 12:04] LABS: EDCOVIDSCREEN Negative (Negative); EDINFLUASCREEN Negative (Negative); EDINFLUBSCREEN Negative (Negative)
== END 2024-05-28 12:20 | disposition home or self-care (01) ==
PROVIDERS: Emergency Provider Registered Nurse
DX: J06.9 Acute upper respiratory infection, unspecified (principal); Z20.822 Contact with and (suspected) exposure to COVID-19
CPT/HCPCS: 87426; 87804; 99213; G0463